=== PATIENT | male | born 1970 | race Caucasian/White ===

== ENCOUNTER 2017-01-22 10:26 | Emergency (ER) | payer OTHER ==
[~2017-01-22] VITALS: Ht 180.3 cm; Wt 97.5 kg
[~2017-01-22 10:26] MED LIST: GUAIFENESIN-COD10 ML PO; IBU-6600 MG PO; LISINOPRIL10 MG PO; PHENERGAN25 M1 PO; PROAIR HFA8.5 GM INH; ZITHROMAX250 M2 PO
--- NOTE | 2017-01-22 11:22 | RADIOLOGY REPORT ---
EXAMINATIONS: CHEST 1 VIEW AND LEFT RIBS CLINICAL INFORMATION: Left-sided pain. Fall. COMPARISON: None. TECHNIQUE: A PA radiograph of the chest was obtained in addition to several views of the left ribs. FINDINGS: The cardiac silhouette is not enlarged. The mediastinal and hilar contours are unremarkable. There are neither pleural effusions nor pneumothoraces. There are no consolidations. There is subtle acuity to the inner cortex of the left lateral seventh rib. This could correspond to a subtle incomplete fracture. IMPRESSION: No acute airspace disease. Subtle acuity to the inner cortex of the left lateral seventh rib. This is nonspecific, but could correspond to an incomplete fracture.
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
[2017-01-22] MEDS ORDERED: MOBIC15 M1 PO (11:40)
[2017-01-22 11:46] VITALS: BP 118/72
== END 2017-01-22 11:48 ==
LOC: ERH 10:26
DX: S22.32XA Fracture of one rib, left side, initial encounter for closed fracture (principal); V86.59XA Driver of other special all-terrain or other off-road motor vehicle injured in nontraffic accident, initial encounter; Y93.9 Activity, unspecified; Y92.9 Unspecified place or not applicable
CPT/HCPCS: 71100-LT; 93005; 93010